=== PATIENT | female | born 1965 ===

== ENCOUNTER 2021-05-12 22:35 | Emergency (ER) | payer OTHER ==
[~2021-05-12] VITALS: Ht 167.6 cm; Wt 72.6 kg
[2021-05-13] MEDS ORDERED: ULTRAM50 MG PO (03:13)
== END 2021-05-13 03:25 ==
LOC: ER 22:35
DX: N23 Unspecified renal colic (principal); N20.1 Calculus of ureter; Z88.6 Allergy status to analgesic agent